=== PATIENT | female | born 1940 ===

== ENCOUNTER 2019-01-22 06:00 | Outpatient (RCR) | payer MEDICARE, OTHER, SELFPAY | END 2019-02-21 00:01 | LOC: GPT 06:00 | PROVIDERS: Family Provider Nurse Practitioner; Visit Provider Orthopaedic Surgery | DX: S52.132D Displaced fracture of neck of left radius, subsequent encounter for closed fracture with routine healing (principal); X58.XXXD Exposure to other specified factors, subsequent encounter | CPT/HCPCS: 97110 ×6; 97140 ×3; 97164; 97530 ×3; G0283 ==

== ENCOUNTER 2019-02-22 06:00 | Outpatient (RCR) | payer MEDICARE, OTHER, SELFPAY | END 2019-03-24 23:59 | disposition home or self-care (01) | LOC: GPT 06:00 | PROVIDERS: Visit Provider Orthopaedic Surgery | DX: M25.522 Pain in left elbow (principal); M25.622 Stiffness of left elbow, not elsewhere classified | CPT/HCPCS: 97110; 97140; 97164; 97530 ==

== ENCOUNTER 2019-03-25 06:00 | Outpatient (RCR) | payer MEDICARE, OTHER, SELFPAY | END 2019-04-22 23:59 | disposition home or self-care (01) | LOC: GPT 06:00 | PROVIDERS: Visit Provider Orthopaedic Surgery | DX: S52.92XD Unspecified fracture of left forearm, subsequent encounter for closed fracture with routine healing (principal); X58.XXXD Exposure to other specified factors, subsequent encounter; M25.522 Pain in left elbow; M25.622 Stiffness of left elbow, not elsewhere classified | CPT/HCPCS: 97110; 97140; 97530; G0283 ==

== ENCOUNTER 2021-12-01 06:00 | Outpatient (RCR) | payer MEDICARE, OTHER, SELFPAY | END 2021-12-22 23:59 | disposition home or self-care (01) | LOC: GPT 06:00 | PROVIDERS: Visit Provider Orthopaedic Surgery | DX: Z47.1 Aftercare following joint replacement surgery (principal); Z96.652 Presence of left artificial knee joint | CPT/HCPCS: 97110; 97140; 97162; 97535; G0283 ==

== ENCOUNTER 2021-12-23 06:00 | Outpatient (RCR) | payer MEDICARE, OTHER, SELFPAY | END 2022-01-21 23:59 | disposition home or self-care (01) | LOC: GPT 06:00 | PROVIDERS: Visit Provider Orthopaedic Surgery | DX: Z47.1 Aftercare following joint replacement surgery (principal); Z96.652 Presence of left artificial knee joint | CPT/HCPCS: 97110; 97112; 97140; 97164; G0283 ==

== ENCOUNTER 2022-01-22 06:00 | Outpatient (RCR) | payer MEDICARE, OTHER, SELFPAY | END 2022-02-21 23:59 | disposition home or self-care (01) | LOC: GPT 06:00 | PROVIDERS: Visit Provider Orthopaedic Surgery | DX: Z47.1 Aftercare following joint replacement surgery (principal); Z96.652 Presence of left artificial knee joint | CPT/HCPCS: 97110; 97140; 97530 ==

== ENCOUNTER 2022-02-22 06:00 | Outpatient (RCR) | payer MEDICARE, OTHER, SELFPAY | END 2022-03-19 16:27 | disposition home or self-care (01) | LOC: GPT 06:00 | PROVIDERS: Visit Provider Orthopaedic Surgery | DX: Z47.1 Aftercare following joint replacement surgery (principal); Z96.652 Presence of left artificial knee joint | CPT/HCPCS: 97110; 97140; 97164; 97530 ==